=== PATIENT | female | born 1990 | race Hispanic/Latino ===

== ENCOUNTER 2018-08-17 23:14 | Emergency (ER) | payer OTHER ==
[2018-08-17 23:50] VITALS: BP 132/85; PULSE 74; RESP 18; TEMP 98; O2SAT 100
--- NOTE | 2018-08-18 02:56 | ED PDOC ---
HPI: Trauma/Fall - HPI Time Seen by Provider: 08/18/18 00:00 Chief Complaint (Nursing): Trauma Past Medical History Vital Signs: Last Vital Signs Temp 98 F 08/17/18 23:46 Pulse 74 08/17/18 23:46 Resp 18 08/17/18 23:46 BP 132/85 08/17/18 23:46 Pulse Ox 100 08/17/18 23:46 - Allergies Allergies/Adverse Reactions: Allergies Allergy/AdvReac Type Severity Reaction Status Date / Time No Known Allergies Allergy Verified 08/17/18 23:44 - ECG O2 Sat by Pulse Oximetry: 100 Disposition - Clinical Impression Clinical Impression: Head injury - Disposition Referrals: [facility] [Outside] Condition: IMPROVED Additional Instructions: FOLLOW UP WITH PMD FOR FURTHER EVALUATION RETURN TO ED IMMEDIATELY IF SYMPTOMS WORSEN TEENA LOPEZ, thank you for letting us take care of you today. Your provider was Lena Vera MD and you were treated for HEAD INJURY, NAUSEA. The emergency medical care you received today was directed at your acute symptoms. If you were prescribed any medication, please fill it and take as directed. It may take several days for your symptoms to resolve. Return to the Emergency Department if your symptoms worsen, do not improve, or if you have any other problems. Please contact your doctor or call one of the physicians/clinics you have been referred to that are listed on the Patient Visit Information form that is included in your discharge packet. Bring any paperwork you were given at discharge with you along with any medications you are taking to your follow up visit. Our treatment cannot replace ongoing medical care by a primary care provider outside of the emergency department. Thank you for allowing the [facility] team to be part of your care today. If you had an X-Ray or CT scan: A Radiologist will review the ED reading if any change in treatment is needed we will contact you. If you had a blood, urine, or wound culture: It will take several days for the results, if any change in treatment is needed we will contact you. If you had an STI test: It will take 48 hours for the results. Please call after 1 week if you have not heard back. Instructions: Closed Head Injury (DC) Forms: [facility] (Irish), [facility] ED School/Work Excuse Print Language: TELUGU
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
--- NOTE | 2018-08-18 11:58 | CT ---
Date of service: 08/18/2018 PROCEDURE: CT HEAD WITHOUT CONTRAST. HISTORY: trauma COMPARISON: None available. TECHNIQUE: Axial computed tomography images were obtained through the head/brain without intravenous contrast. Supplemental Coronal and Sagittal projections created and reviewed. Radiation dose: Total exam DLP = 845.97 mGy-cm. This CT exam was performed using one or more of the following dose reduction techniques: Automated exposure control, adjustment of the mA and/or kV according to patient size, and/or use of iterative reconstruction technique. FINDINGS: HEMORRHAGE: No intracranial hemorrhage. BRAIN: No mass effect or edema. No atrophy or chronic microvascular ischemic changes. VENTRICLES: Unremarkable. No hydrocephalus. CALVARIUM: Unremarkable. PARANASAL SINUSES: Unremarkable as visualized. No significant inflammatory changes. MASTOID AIR CELLS: Unremarkable as visualized. No inflammatory changes. OTHER FINDINGS: None. IMPRESSION: No acute intracranial abnormalities. No significant findings to account for the clinical presentation. Concordant results (preliminary interpretation) provided by [employer]. Procedure Completed: 01:18. Preliminary Report: Interpreted and electronically signed: 02:49. Final Interpretation: 11:59.
== END 2018-08-18 02:58 | disposition home or self-care (01) ==
LOC: H.ER 23:14
DX: S09.90XA Unspecified injury of head, initial encounter (principal); W19.XXXA Unspecified fall, initial encounter